=== PATIENT | female | born 1985 | race Caucasian/White ===

== ENCOUNTER 2016-08-03 19:18 | Observation (INO) | payer BC ==
[~2016-08-03] VITALS: Ht 165.1 cm; Wt 119.7 kg
[2016-08-03 21:17] LABS: Urine Bilirubin Negative (Negative); Urine Color Yellow (Yellow); Urine Glucose Normal (Normal); Urine Hyaline Cast FEW /lpf (0 - 2); Urine Ketone Negative (Negative); Urine Nitrite Negative (Negative); Urine RBC 15 /hpf (0 - 4); Urine Squamous Epithelial Cell FEW /hpf (<5); Urine Urobilinogen Normal (Negative)
[2016-08-03 21:31] LABS: Urine Blood 2+ /uL (Negative)
[2016-08-03 21:36] LABS: Albumin 2.4 g/dL (3.4-5.0); BUN/Creatinine Ratio 6.4; Basophils # (auto) 0 uL; Basophils % (auto) 0.5 % (0.0-2.0); Bilirubin, Total 0.2 mg/dL (0.2-1.0); Calcium 8.6 mg/dL (8.5-10.1); Eosinophils # (auto) 0.2 uL; Eosinophils % (auto) 2.5 % (0.0-7.0); Hematocrit 31.4 % (36.0-46.0); Hemoglobin 10.3 g/dL (12.2-16.2); Lymphocytes # (auto) 1.9 uL; Lymphocytes % (auto) 25.5 % (10.0-50.0); Mean Corpuscular Hemoglobin 29.9 pg (28.0-32.0); Mean Corpuscular Hgb Conc. 32.8 g/dL (32.0-36.0); Mean Corpuscular Volume 91.3 fL (80.0-100.0); Mean Platelet Volume 6.9 fL (7.4-10.4); Monocytes # (auto) 0.5 uL; Monocytes % (auto) 6.3 % (0.0-12.0); Neutrophils # (auto) 4.9 uL; Neutrophils % (auto) 65.2 % (37.0-80.0); Platelet Count (auto) 400 10^3/uL (140-450); Potassium 3.7 mmol/L (3.5-5.1); Red Cell Distribution Width 16.4 % (11.6-16.0); Total Protein 6.5 g/dL (6.4-8.2); White Blood Cell 7.5 10^3/uL (4.4-10.8)
[2016-08-03 21:38] LABS: INR 1.06 (0.9-1.15); Partial Thromboplastin Time 30.1 sec (22.64-33.71); Prothrombin Time 10.9 sec (9.37-12.3)
[2016-08-03] MEDS ORDERED: MORPHINE SULFATE 4 MG/ML SYRG ONE (22:04)
[2016-08-03] MEDS ORDERED: ONDANSETRON HCL 4 MG/2 ML VIAL ONE (22:05)
[2016-08-03] MEDS ORDERED: MORPHINE SULFATE 4 MG/ML SYRG IV ONE (22:15)
[2016-08-03] MEDS ORDERED: ONDANSETRON HCL 4 MG/2 ML VIAL IV ONE (22:15)
[2016-08-03 22:22] VITALS: BP 120/67
[2016-08-03] MEDS ORDERED: cefTRIAXone 1GM/50ML D5W 50 ML IV ONE ×2 (22:45→23:35)
== END 2016-08-04 00:42 | disposition home or self-care (01) | DRG 921 ==
LOC: EDBD 19:18 → ER 19:22 → OVERFLOW 20:40 → ER 08-04 00:42
PROVIDERS: ADMIT Emergency Medicine; ATTEND Emergency Medicine
DX: T81.31XA Disruption of external operation (surgical) wound, not elsewhere classified, initial encounter (principal); Y92.89 Other specified places as the place of occurrence of the external cause; D89.9 Disorder involving the immune mechanism, unspecified
CPT/HCPCS: 36415; 76856; 80053; 81001; 85025; 85610; 85730; 96374; 96375; 99285; G0378; J0696; J2270; J2405

== ENCOUNTER 2018-10-13 22:31 | Emergency (ER) | payer BC ==
[~2018-10-13] VITALS: Ht 165.1 cm; Wt 104.3 kg
[2018-10-13 23:14] LABS: Basophils # (auto) 0.1 uL; Basophils % (auto) 0.4 % (0.0-2.0); Eosinophils # (auto) 0.3 uL; Eosinophils % (auto) 2.2 % (0.0-7.0); Hematocrit 38.6 % (36.0-46.0); Hemoglobin 13.2 g/dL (12.2-16.2); Lymphocytes # (auto) 1.8 uL; Lymphocytes % (auto) 13.2 % (10.0-50.0); Mean Corpuscular Hemoglobin 31.8 pg (28.0-32.0); Mean Corpuscular Hgb Conc. 34.1 g/dL (32.0-36.0); Mean Corpuscular Volume 93.2 fL (80.0-100.0); Monocytes # (auto) 0.7 uL; Monocytes % (auto) 5.3 % (0.0-12.0); Neutrophils % (auto) 78.9 % (37.0-80.0); Platelet Count (auto) 231 10^3/uL (140-450); Red Blood Cells 4.14 10^6/uL (4.0-5.20); Red Cell Distribution Width 13.4 % (11.8-14.3); White Blood Cell 13.9 10^3/uL (4.4-10.8)
[2018-10-13] MEDS ORDERED: ONDANSETRON HCL 4 MG/2 ML VIAL IV ONE (23:15)
[2018-10-13] MEDS ORDERED: SODIUM CHLORIDE 0.9% 1,000 ML IV ONE (23:15)
[2018-10-13] MEDS ORDERED: MORPHINE SULF INJ 2 MG/ML SYRINGE 1ML IV ONE (23:15)
[2018-10-13 23:32] LABS: Albumin 3.2 g/dL (3.4-5.0); Calcium 8.7 mg/dL (8.5-10.1); Potassium 3.8 mmol/L (3.5-5.1)
[2018-10-13 23:36] LABS: Bilirubin, Total 0.2 mg/dL (0.2-1.0)
[2018-10-14] MEDS ORDERED: MORPHINE SULF INJ 2 MG/ML SYRINGE 1ML IV ONE (00:15)
[2018-10-14 04:03] VITALS: BP 99/52
[2018-10-14] MEDS ORDERED: METHYLERGONOVINE MALEATE 0.2 MG/ML AMP IM ONE (04:45)
== END 2018-10-14 04:39 | disposition home or self-care (01) ==
LOC: EDBD 22:31 → ER 22:34
DX: O03.9 Complete or unspecified spontaneous abortion without complication (principal); Z3A.01 Less than 8 weeks gestation of pregnancy
CPT/HCPCS: 36415; 76805; 80053; 84702; 85025; 86850; 86900; 86901; 94761; 96374; 96375; 96376; 99284; J2270; J2405